=== PATIENT | female | born 1985 | race Caucasian/White ===

== ENCOUNTER 2023-12-19 09:04 | Emergency (ER) | payer OTHER, SELFPAY ==
[2023-12-19] VITALS (8 sets, daily range): BP systolic 112–134; BP diastolic 73–84; PULSE 76–91; RESP 13–21; TEMP 36.6; O2SAT 98–100; BMI 32.1
--- NOTE | 2023-12-19 09:19 | DI.RAD.S_ITS ---
PROCEDURE: XR CHEST 1V INDICATIONS: chest pain TECHNIQUE: One view of the chest was acquired. COMPARISON: None. FINDINGS: Surgical changes and devices: None. Lungs and pleura: Lungs are clear. No pleural effusions or pneumothorax. Mediastinum: Mediastinal contours appear normal. Heart size is normal. Bones and chest wall: No suspicious bony lesions. Overlying soft tissues appear unremarkable. IMPRESSION: No acute cardiopulmonary abnormality is seen. Dictated by: Joel Doe M.D. on 12/19/2023 at 10:05 Approved by: Joel Doe M.D. on 12/19/2023 at 10:06
--- NOTE | 2023-12-19 09:20 | DI.RAD.S_ITS ---
PROCEDURE: XR SHOULDER LT MIN 2V INDICATIONS: pain TECHNIQUE: 3 views of the shoulder were acquired. COMPARISON: None. FINDINGS: Bones: No fractures or dislocations. No suspicious bony lesions. Visualized ribs appear intact. Soft tissues: No suspicious soft tissue calcifications. IMPRESSION: No acute bony abnormality. Dictated by: Joel Doe M.D. on 12/19/2023 at 10:06 Approved by: Joel Deo M.D. on 12/19/2023 at 10:07
--- NOTE | 2023-12-19 09:27 | EKG_ITS ---
[address] [address] Test Date: 2023-12-19 Pat Name: Puja Combs Department: Room: Gender: Female [place] Hand: JAYME : 1985 Requested By: Order Number: [id number] Reading MD: Toney Robertson Measurements Intervals [place] Rate: 90 P: 46 MS: 132 QRS: -20 QRSD: 88 T: 29 QT: 364 QTc: 445 Interpretive Statements Normal sinus rhythm Electronically Signed On 12-19-2023 18:26:26 PDT by Toney Robertson
[2023-12-19 09:39] LABS: Add Manual Diff / Slide Review NO; Basophils Absolute Auto 100 /uL (0-100); Basophils Percent Auto 1.1 % (0-2); Eosinophils Absolute Auto 100 /uL (0-450); Eosinophils Percent Auto 0.8 % (2-4); Hematocrit 37.5 % (36-46); Hemoglobin 12.5 g/dL (12.0-16.0); Lymphocytes Absolute Auto 3300 /uL (1100-4500); Lymphocytes Percent Auto 26.5 % (25-40); Mean Corpuscular HGB Conc 33.4 % (30-36); Mean Corpuscular Hemoglobin 27.7 PG (26-34); Monocytes Absolute Auto 600 /uL (0-900); Monocytes Percent Auto 5.2 % (3-14); Neutrophils Absolute Auto 8200 /uL (1500-7000); Neutrophils Percent Auto 66.4 % (50-75); Platelet Count 348 X10^3/uL (150-400); Red Blood Cell Count 4.52 X10^6/uL (4.0-5.2); Red Cell Distribution Width 13.4 % (11.6-14.8); White Blood Cell Count 12.3 X10^3/uL (4.5-11.0)
[2023-12-19 09:48] LABS: PTT Partial Thromboplastin Tim 38 SECONDS (25.1-36.5)
[2023-12-19 11:02] LABS: Alanine Aminotransferase 19 IU/L (<35); Albumin 4.3 g/dL (3.5-5.0); Albumin Globulin Ratio 1.3 (1.0-2.8); Alkaline Phosphatase 82 U/L (38-126); Aspartate Aminotransferase 20 IU/L (14-36); BUN Creatinine Ratio 40.4 (6-22); Bilirubin Total 0.6 mg/dL (0.2-1.3); Blood Urea Nitrogen 19 mg/dL (7-17); Calcium 9.2 mg/dL (8.4-10.2); Carbon Dioxide 23 mmol/L (22-32); Chloride 108 mmol/L (98-107); Creatine Kinase 44 U/L (30-135); Estimated Glomerular Filt Rate > 60 mL/min (>60); Globulin 3.4 g/dL (1.7-4.1); Glucose 127 mg/dL (70-100); HEMOLYSIS < 15 (0-50); Lipase 41 U/L (23-300); Potassium 4.4 mmol/L (3.4-5.1); Sodium 139 mmol/L (137-145); Total Protein 7.7 g/dL (6.3-8.2)
[2023-12-19 11:14] LABS: NT-proBNP (BNP-Adult 18+) < 20 pg/mL (<125); Troponin I < 0.012 ng/mL (0.01-0.034)
[2023-12-19] MEDS: KETOROLAC 30 MG/ML VIAL 15 MG IV (11:43)
[2023-12-19 12:04] LABS: Troponin I < 0.012 ng/mL (0.01-0.034)
--- NOTE | 2023-12-19 12:30 | ED_ITS ---
HPI - Extremity Problem General Chief complaint: Extremity Problem,Nontraumatic Stated complaint: left shoulder pain Time Seen by Provider: 12/19/23 11:19 History of Present Illness HPI Narrative: 38-year-old woman with a history of diabetes, currently anticoagulated with acute heart attack and stenting August of this year woke this morning with left shoulder pain. This was similar to the pain that she experienced that led to the heart stents. She has not having nausea, vomiting, dyspnea. She comes in for further evaluation. Related Data Previous Rx's Medication Instructions Recorded dexamethasone 4 mg tablet 10 mg (2.5 x 4 mg) PO DAILY #5 tabs 12/19/23 Allergies Allergy/AdvReac Type Severity Reaction Status Date / Time No Known Drug Allergies Allergy Verified 12/19/23 09:12 Patient History Social History Smoking Status: Never smoker Smoking Status: Never smoker alcohol intake frequency: other Substance Use Type: does not use Exam Initial Vital Signs Initial Vital Signs: Vital Signs Temperature 97.9 F 12/19/23 09:12 Pulse Rate 91 H 12/19/23 09:12 Respiratory Rate 18 12/19/23 09:12 Blood Pressure 131/73 12/19/23 09:12 Pulse Oximetry 98 12/19/23 09:12 Oxygen Delivery Method Room Air 12/19/23 09:12 Course Orders Ordered: ED Orders 12/19/23 09:19 XR chest 1V Stat EKG-12 Lead Stat 12/19/23 09:20 XR shoulder LT min 2V Stat 12/19/23 09:25 Complete Blood Count AUTO DIFF Stat PTT Partial Thromboplastin Wolfgang Stat Prothrombin Time INR Stat 12/19/23 10:10 Comprehensive Metabolic Panel Stat Lipase Stat Magnesium Stat NT-proBNP (BNP-Adult 18+) Stat Troponin & CK Cardiac Panel Stat 12/19/23 11:32 Trop I [Troponin I] Stat Discontinued Medications Aspirin (Aspirin 81 Mg Chew Tab) 324 mg PO NOW ONE Stop: 12/19/23 09:20 Last Admin: 12/19/23 10:45 Dose: Not Given Documented By: Ketorolac Tromethamine (Ketorolac 30 Mg/Ml Vial) 15 mg IV NOW ONE Stop: 12/19/23 11:40 Last Admin: 12/19/23 11:43 Dose: 15 mg Documented By: Vital Signs Vital signs: Vital Signs - 8 hr 12/19/23 09:12 12/19/23 10:38 12/19/23 10:40 Temperature 97.9 F Pulse Rate 91 H 85 Respiratory Rate 18 Blood Pressure 131/73 134/84 Pulse Oximetry 98 99 Oxygen Delivery Method Room Air 12/19/23 10:40 12/19/23 11:00 12/19/23 11:00 Temperature Pulse Rate 83 76 Respiratory Rate 15 Blood Pressure 119/74 Pulse Oximetry 99 99 Oxygen Delivery Method 12/19/23 11:30 12/19/23 11:30 12/19/23 11:31 Temperature Pulse Rate 86 87 Respiratory Rate 13 Blood Pressure 120/77 Pulse Oximetry 100 100 Oxygen Delivery Method 12/19/23 11:31 Temperature Pulse Rate Respiratory Rate Blood Pressure 123/76 Pulse Oximetry Oxygen Delivery Method MDM - Extremity (Nontraumatic) Lab Data 12/19/23 09:25 12/19/23 10:10 Labs: Lab Results 12/19/23 12/19/23 12/19/23 Range/Units 09:25 10:10 11:32 WBC 12.3 H (4.5-11.0) X10^3/uL RBC 4.52 (4.0-5.2) X10^6/uL Hgb 12.5 (12.0-16.0) g/dL Hct 37.5 (36-46) % MCV 83.0 (80-100) fL MCH 27.7 (26-34) PG MCHC 33.4 (30-36) % RDW 13.4 (11.6-14.8) % Plt Count 348 (150-400) X10^3/uL Neut % (Auto) 66.4 (50-75) % Lymph % (Auto) 26.5 (25-40) % Yancey % (Auto) 5.2 (3-14) % Eos % (Auto) 0.8 L (2-4) % Baso % (Auto) 1.1 (0-2) % Neut # (Auto) 8200 H (6447-6979) /uL Lymph # (Auto) 3300 (9007-4209) /uL Yancey # (Auto) 600 (0-900) /uL Eos # (Auto) 100 (0-450) /uL Baso # (Auto) 100 (0-100) /uL PT 12.0 (9.4-12.5) SECONDS INR 1.0 (0.9-1.3) APTT 38 H (25.1-36.5) SECONDS Sodium 139 (137-145) mmol/L Potassium 4.4 (3.4-5.1) mmol/L Chloride 108 H (98-107) mmol/L Carbon Dioxide 23 (22-32) mmol/L BUN 19 H (7-17) mg/dL Creatinine 0.47 L (0.52-1.04) mg/dL Estimated GFR > 60 (>60) mL/min BUN/Creatinine Ratio 40.4 H (6-22) Glucose 127 H (70-100) mg/dL Calcium 9.2 (8.4-10.2) mg/dL Magnesium 2.0 (1.6-2.3) mg/dL Total Bilirubin 0.6 (0.2-1.3) mg/dL AST 20 (14-36) IU/L ALT 19 (<35) IU/L Alkaline Phosphatase 82 (38-126) U/L Total Creatine Kinase 44 (30-135) U/L Troponin I < 0.012 < 0.012 (0.01-0.034) ng/mL NT-Pro-B Natriuret Pep < 20 (<125) pg/mL Total Protein 7.7 (6.3-8.2) g/dL Albumin 4.3 (3.5-5.0) g/dL Globulin 3.4 (1.7-4.1) g/dL Albumin/Globulin Ratio 1.3 (1.0-2.8) Lipase 41 (23-300) U/L MDM Narrative Medical decision making narrative: CC: Awoke with left shoulder pain, similar to pain in August that led to coronary stenting Complicating co-morbidities: Diabetes, recent coronary stents Data collected from: patient Differential considered: Musculoskeletal pain, pleurisy, acute coronary syndrome Exam documented above, pertinent findings include: Patient has moderate tenderness over the left shoulder bursa. With abduction and external rotation she does have some pain. Also some pain with simply reaching forward. There was no warmth or redness to the area. No recent trauma. Remainder of exam is benign Lab Test results independently reviewed as above. Pertinent findings: CBC shows mild leukocytosis without significant left shift Chemistries show no significant abnormalities Initial troponin and repeat troponin are undetectable Independently reviewed EKG: EKG shows sinus rhythm at a rate of 90 with no acute ischemic changes. Imaging studies independently reviewed: Chest x-ray is entirely reassuring Shoulder x-ray shows no acute abnormalities Treatments: She has given a dose of Toradol, aspirin is given on arrival Oral dexamethasone Discussion: 38-year-old woman with a history of recent cardiac event and stent placement presents with left shoulder pain that is acute in onset. There was no evidence of acute coronary syndrome, infection, septic joint. X-rays are unremarkable. Bursitis is a possibility and we talked about the use of nonsteroidals. Because she is on anticoagulants we will have her use 3 days of dexamethasone rather than ibuprofen. She has given a 1st dose in the emergency department. She is placed in a sling for comfort. Suggested ice as needed. If symptoms worsen or suggest alternative diagnosis I encouraged her to returned so that we can fully re-evaluate. Discharge Plan Departure Patient Disposition: Home Clinical Impression: Acute shoulder bursitis Qualifiers: Laterality: left Qualified Code(s): M75.52 - Bursitis of left shoulder Instructions: DI for Bursitis Activity Restrictions/Additional Instructions: Thank you for coming in today Given that your prior cardiac event presented with left shoulder pain, we did do a thorough cardiac workup today that does not suggest that your current shoulder pain is related to your heart. Your x-ray was reassuring. I suspect that you are developing bursitis given the acuity of your findings. I have sent a prescription for dexamethasone, a steroidal anti-inflammatory given the fact that you can not take nonsteroidal anti-inflammatories with your current anticoagulation. The dexamethasone 1st dose was given in the emergency department. You need 10 mg tomorrow and 10 mg the following day. This will likely make your blood sugars high for 3-4 days. Prescription was sent to [facility] in [place] I have given you a sling to use for comfort, consider using ice as well. If symptoms change or worsen please feel free to return to the ER for further evaluation Prescriptions: New dexamethasone 4 mg tablet 10 mg PO DAILY Qty: 5 0RF Referrals: Miscellaneous,Doctor, [Primary Care Provider] - Stand Alone Forms: Patient Portal/API
[2023-12-19] MEDS: dexAMETHasone 4 MG TABLET 12 MG PO (12:59)
== END 2023-12-19 13:08 | disposition home or self-care (01) ==
PROVIDERS: Emergency Provider Emergency Medicine
DX: M75.52 Bursitis of left shoulder (principal); Z79.01 Long term (current) use of anticoagulants; I25.2 Old myocardial infarction; Z95.5 Presence of coronary angioplasty implant and graft
CPT/HCPCS: 36415; 71045; 73030; 80053; 82550; 83690; 83735; 83880; 84484; 85025; 85610; 85730; 93005; 96374; 99284; J1885